=== PATIENT | female | born 2000 | race Caucasian/White ===

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

== ENCOUNTER 2021-02-04 18:43 | Emergency (ER) | payer OTHER ==
[~2021-02-04] VITALS: Ht 165.1 cm; Wt 75.0 kg
[2021-02-04] MEDS ORDERED: KEFLEX500 MG PO (20:26)
[2021-02-04] MEDS ORDERED: IBUPROFEN600 MG PO ×2 (20:26→20:38)
[2021-02-04 20:29] VITALS: BP 114/63
[2021-02-04] MEDS ORDERED: CEPHALEXIN500 MG PO (20:38)
== END 2021-02-04 20:35 | disposition home or self-care (01) ==
LOC: ED 18:43
DX: S00.31XA Abrasion of nose, initial encounter (principal); S00.33XA Contusion of nose, initial encounter; F17.290 Nicotine dependence, other tobacco product, uncomplicated; W20.8XXA Other cause of strike by thrown, projected or falling object, initial encounter; Y93.83 Activity, rough housing and horseplay; Y92.009 Unspecified place in unspecified non-institutional (private) residence as the place of occurrence of the external cause